=== PATIENT | female | born 1945 | race Caucasian/White ===

== ENCOUNTER 2018-10-04 03:12 | Inpatient (IN) | payer MEDICARE | END 2018-10-22 16:58 | LOC: EDH 03:12 → 2AH 10-05 03:43 → 2CH 10-11 15:30 → 2DH 10-15 20:12 → EDHIP 05:15 | DX: I21.4 Non-ST elevation (NSTEMI) myocardial infarction (principal); J96.01 Acute respiratory failure with hypoxia; J18.9 Pneumonia, unspecified organism; I50.23 Acute on chronic systolic (congestive) heart failure; K66.1 Hemoperitoneum; J44.1 Chronic obstructive pulmonary disease with (acute) exacerbation; J44.0 Chronic obstructive pulmonary disease with (acute) lower respiratory infection; I13.0 Hypertensive heart and chronic kidney disease with heart failure and stage 1 through stage 4 chronic kidney disease, or unspecified chronic kidney disease; I48.91 Unspecified atrial fibrillation; I11.0 Hypertensive heart disease with heart failure ==

== ENCOUNTER 2019-09-21 18:03 | Inpatient (IN) | payer MEDICARE ==
[~2019-09-21] VITALS: Ht 162.6 cm; Wt 76.2 kg
[2019-09-21] MEDS ORDERED: ALBUTEROL INHALER 90MCG/INH IH ONE (18:16)
[2019-09-21] MEDS ORDERED: METHYLPREDNISOLONE SOD SUCC 125MG/2ML VIAL ONE (18:17)
[2019-09-21 18:40] LABS: BASOPHILS % (AUTO) 0.3 % (0.0-5.0); EOSINOPHILS % (AUTO) 0.2 % (0.0-8.0); HEMATOCRIT 41.8 % (36-48); LYMPHOCYTES % (AUTO) 17.2 % (21.0-51.0); MEAN CORPUSCULAR HEMOGLOBIN 28.3 pg (27.0-33.0); MEAN CORPUSCULAR HGB CONC 31.1 g/dL (32.0-36.0); MEAN CORPUSCULAR VOLUME 90.9 fL (79-99); MONOCYTES % (AUTO) 4.8 % (3.0-13.0); PLATELET COUNT (AUTO) 328 K/uL (130-400); RED CELL DISTRIBUTION WIDTH 15.2 % (11.0-15.5); WHITE BLOOD COUNT (AUTO) 16.3 K/uL (4.8-10.8)
[2019-09-21 18:55] LABS: CREATININE 0.9 mg/dL (0.5-1.5); POTASSIUM 4.5 mmol/L (3.5-5.1)
[2019-09-21 18:57] LABS: INR 0.97 (0.85-1.15); PARTIAL THROMBOPLASTIN TIME 23.3 SEC (26.3-35.5); PROTHROMBIN TIME 10.5 SEC (9.6-11.6)
[2019-09-21 19:01] LABS: ALBUMIN 3.9 g/dL (3.5-5.0); BILIRUBIN,TOTAL 1.4 mg/dL (0.2-1.0); MAGNESIUM 2.4 mg/dL (1.80-2.40); TOTAL PROTEIN, SERUM 8.4 g/dL (6.0-8.3)
[2019-09-21 19:09] LABS: ABG HCO3 24.8 mmol/L (21.0-28.0); ABG OXYGEN SATURATION 99.8 % (95.0-99.0); ABG PCO2 50 mmHg (32-45)
[2019-09-21 19:17] LABS: B-TYPE NATRIURETIC PEPTIDE 861 pg/mL (0-100)
[2019-09-21] MEDS ORDERED: DILTIAZEM HCL 5 MG/ML 10 ML VIAL IV ONE (19:51)
[2019-09-21] MEDS ORDERED: LEVOFLOXACIN 500 MG/D5W 100 ML 100 ML ONE (19:55)
[2019-09-21] MEDS ORDERED: VANCOMYCIN 1GM+NS 250ML 250 ML IV ONE (19:55)
[2019-09-21] MEDS ORDERED: HYDROCODONE/ACETAMINOPHEN 5/325 MG TAB ONE (20:09)
[2019-09-21] MEDS ORDERED: AZITHROMYCIN 500MG+NS 250ML 250 ML IV ONE (20:36)
[2019-09-21] MEDS ORDERED: FUROSEMIDE 10 MG/ML 4ML VIAL ONE (20:36)
[2019-09-21] MEDS ORDERED: DILTIAZEM HCL 125 MG/25 ML VIAL IV ONE (20:37)
[2019-09-21] MEDS ORDERED: SODIUM CHLORIDE 0.9% 100 ML IV ONE (20:37)
[2019-09-21] MEDS ORDERED: CEFTRIAXONE SODIUM 1 GM ONE (20:37)
[2019-09-21] MEDS ORDERED: DILTIAZEM 125MG+100 ML NS 125 ML IV SCH (21:15)
[2019-09-21 23:22] VITALS: BP 123/92
[2019-09-22 00:50] LABS: TROPONIN I 0.04 ng/mL (0.00-0.06)
[2019-09-22] MEDS: HYDROCODONE/ACETAMINOPHEN 10/325 MG TAB PO PRN ×4 (04:47→23:37)
[2019-09-22 06:24] VITALS: BP 128/68
[2019-09-22 06:25] LABS: HEMATOCRIT 39.3 % (36-48); MEAN CORPUSCULAR HEMOGLOBIN 28.9 pg (27.0-33.0); MEAN CORPUSCULAR HGB CONC 31.8 g/dL (32.0-36.0); RED BLOOD CELL COUNT(AUTO) 4.32 MIL/uL (4.00-5.50); RED CELL DISTRIBUTION WIDTH 15.1 % (11.0-15.5); WHITE BLOOD COUNT (AUTO) 8.7 K/uL (4.8-10.8)
[2019-09-22 06:46] LABS: ALBUMIN 3.5 g/dL (3.5-5.0); BILIRUBIN,TOTAL 0.8 mg/dL (0.2-1.0); CREATININE 0.8 mg/dL (0.5-1.5); POTASSIUM 3.9 mmol/L (3.5-5.1); TOTAL PROTEIN, SERUM 7.6 g/dL (6.0-8.3)
[2019-09-22 06:53] LABS: TROPONIN I 0.07 ng/mL (0.00-0.06)
[2019-09-22] MEDS: INSULIN R PO SS1 SQ SCH ×4 (07:10→21:00)
[2019-09-22] MEDS ORDERED: DILTIAZEM HCL 120 MG CAP.SR.24H PO SCH (09:00)
[2019-09-22] MEDS: ENOXAPARIN SODIUM 100 MG/1 ML SQ SCH ×3 (09:05→20:13)
[2019-09-22 09:11] VITALS: BP 156/92
[2019-09-22] MEDS: FUROSEMIDE 10 MG/ML 2ML VIAL IVP SCH ×2 (11:51→23:36)
[2019-09-22 12:36] LABS: TROPONIN I 0.06 ng/mL (0.00-0.06)
[2019-09-22 12:49] VITALS: BP 136/72
--- NOTE | 2019-09-22 15:51 | NUR ---
ATTEMPTED IA - NO ANSWER AT PT AND SPOUE PHONE NUMBER. WILL FOLLOW UP PT IS COVID UNIT, NEED TO DO INTERVIEW VIA PHONE. Addendum: 09/22/19 at 1553 by SHON FISHER RN CM Amended: Links added.
--- NOTE | 2019-09-22 15:58 | NUR ---
CHART REVIEWED, ACF UPLOADED
[2019-09-22 16:21] VITALS: BP 151/69
[2019-09-22 19:00] VITALS: BP 140/73
[2019-09-22] MEDS: CEFTRIAXONE SODIUM 1 GM IVP SCH (20:11)
[2019-09-22] MEDS: AZITHROMYCIN 500MG+NS 250ML 250 ML IV SCH (20:11)
[2019-09-22] MEDS ORDERED: METOPROLOL TARTRATE 50 MG TAB PO SCH (21:00)
[2019-09-22 23:00] VITALS: BP 133/73
[2019-09-23 03:00] VITALS: BP 127/84
[2019-09-23 04:48] LABS: BASOPHILS % (AUTO) 0.1 % (0.0-5.0); HEMATOCRIT 36.6 % (36-48); LYMPHOCYTES % (AUTO) 11.4 % (21.0-51.0); MEAN CORPUSCULAR HEMOGLOBIN 28.6 pg (27.0-33.0); MEAN CORPUSCULAR HGB CONC 31.7 g/dL (32.0-36.0); MEAN CORPUSCULAR VOLUME 90.1 fL (79-99); MONOCYTES % (AUTO) 5.7 % (3.0-13.0); NEUTROPHILS % (AUTO) 82.4 % (40.0-77.0); PLATELET COUNT (AUTO) 286 K/uL (130-400); RED BLOOD CELL COUNT(AUTO) 4.06 MIL/uL (4.00-5.50); RED CELL DISTRIBUTION WIDTH 15.2 % (11.0-15.5); WHITE BLOOD COUNT (AUTO) 14.4 K/uL (4.8-10.8)
[2019-09-23 05:19] LABS: CREATININE 0.8 mg/dL (0.5-1.5); POTASSIUM 3.5 mmol/L (3.5-5.1)
[2019-09-23] MEDS: HYDROCODONE/ACETAMINOPHEN 10/325 MG TAB PO PRN ×4 (05:51→22:07)
[2019-09-23] MEDS: INSULIN R PO SS1 SQ SCH ×4 (07:30→21:00)
[2019-09-23] MEDS: METOPROLOL SUCCINATE 50 MG TAB.SR.24H PO SCH (08:24)
[2019-09-23] MEDS: FUROSEMIDE 10 MG/ML 2ML VIAL IVP SCH ×2 (08:24→16:39)
[2019-09-23] MEDS: APIXABAN 5 MG TABLET PO SCH ×2 (08:25→21:59)
[2019-09-23 08:49] VITALS: BP 151/83
[2019-09-23 12:00] VITALS: BP 147/79
--- NOTE | 2019-09-23 15:18 | NUR ---
INITIAL SPOKE TO PATIENT VIA ROOM PHONE. LIVES W SPOUSE, SCOOTER AT [facility]- NO OTHER FAMILY IN [facility], BUT NEIGHBORS AND GFRIENDS AT [place] FOR SUPPORT; USES A CAN AND WALKER, BENCH IN SHOWER, 3 STEP UP TO HOUSE. NO PROVIDER SERVICES; HAD BAD FALL IN MAY AND WAS SENT TO [facility] "FOR MONTHS AND MONTHS" WILLING TO GO TO REHAB IF NEEDED. ON HIGH FLOW O2 AT THIS TIME, VERY WEAK, CM TO FOLLOW Addendum: 09/23/19 at 1521 by SHON FISHER RN CM Amended: Links added.
[2019-09-23 17:05] VITALS: BP 150/81
[2019-09-23 19:00] VITALS: BP 142/66
[2019-09-23] MEDS: AZITHROMYCIN 500MG+NS 250ML 250 ML IV SCH (20:00)
--- NOTE | 2019-09-23 20:10 | NUR ---
In to give meds, Eliquis and [place] given. Patient complains of pain to IV site, IV removed. Patient requesting to rest before new IV attempted.
[2019-09-23] MEDS: CEFTRIAXONE SODIUM 1 GM IVP SCH (21:00)
[2019-09-23] MEDS: LOSARTAN 50 MG TABLET PO SCH (22:00)
[2019-09-24] VITALS (7 sets, daily range): BP systolic 111–158; BP diastolic 61–89
[2019-09-24] MEDS: HYDROCODONE/ACETAMINOPHEN 10/325 MG TAB PO PRN ×5 (00:11→20:15)
[2019-09-24] MEDS: INSULIN R PO SS1 SQ SCH ×3 (05:39→20:16)
[2019-09-24] MEDS: FUROSEMIDE 10 MG/ML 2ML VIAL IVP SCH ×2 (08:25→20:15)
[2019-09-24] MEDS: APIXABAN 5 MG TABLET PO SCH ×2 (08:25→20:15)
[2019-09-24] MEDS: METOPROLOL SUCCINATE 50 MG TAB.SR.24H PO SCH (08:25)
[2019-09-24] MEDS: LOSARTAN 50 MG TABLET PO SCH (20:15)
[2019-09-24] MEDS: CEFTRIAXONE SODIUM 1 GM IVP SCH (20:15)
[2019-09-24] MEDS: AZITHROMYCIN 500MG+NS 250ML 250 ML IV SCH (20:15)
[2019-09-25] MEDS: HYDROCODONE/ACETAMINOPHEN 10/325 MG TAB PO PRN ×4 (00:03→23:51)
[2019-09-25 03:30] VITALS: BP 138/73
[2019-09-25] MEDS: INSULIN R PO SS1 SQ SCH ×4 (06:46→20:05)
[2019-09-25] MEDS: FUROSEMIDE 10 MG/ML 2ML VIAL IVP SCH (07:43)
[2019-09-25] MEDS: METOPROLOL SUCCINATE 50 MG TAB.SR.24H PO SCH (07:45)
[2019-09-25] MEDS: APIXABAN 5 MG TABLET PO SCH ×2 (07:46→20:47)
[2019-09-25 08:20] VITALS: BP 154/65
[2019-09-25 11:30] VITALS: BP 126/73
[2019-09-25 15:30] VITALS: BP 143/77
--- NOTE | 2019-09-25 18:20 | NUR ---
PATIENT TRANSFERRED FROM 202 TO 405 RECEIVED REPORT AND PATIENT BROUGHT BY WHEELCHAIR FROM ROOM 202 TO ROOM 405. ALERT AND ORIENTATED TIMES 3 , O2 AT @ 2 LITERS NC DENIES SOB, STATES PAIN SCORE 4 OUT OF 10. EDEMA +1 IN LOWER EXTREMITIES AND STATES LAST BM 09/24/19. HX OF SMOKING, COPD, HTN, DM, AFIB , BACK PAIN, AND HAD ECHO 05/2019 WITH AN EF OF 40%. LAST K+ 3.5 09/22 AND PATIENT WAS COVERED BUT NO LABS ORDERED TODAY. PATIENT TRANSFERRED TO BED . PATIENT HAS 22 G SL IN RIGHT FOREARM. SIDE RAILS UP X 2 AND CALL LIGHT AT BEDSIDE. WILL CONTINUR TO MONITOR
[2019-09-25 18:43] VITALS: BP 123/71
[2019-09-25] MEDS: AZITHROMYCIN 500MG+NS 250ML 250 ML IV SCH (20:46)
[2019-09-25] MEDS: CEFTRIAXONE SODIUM 1 GM IVP SCH (20:46)
[2019-09-25] MEDS: LOSARTAN 50 MG TABLET PO SCH (22:43)
[2019-09-25 23:00] VITALS: BP 132/71
[2019-09-26 03:25] VITALS: BP 140/75
[2019-09-26 03:52] LABS: BASOPHILS % (AUTO) 0.2 % (0.0-5.0); EOSINOPHILS % (AUTO) 1.4 % (0.0-8.0); HEMATOCRIT 39.3 % (36-48); LYMPHOCYTES % (AUTO) 31.5 % (21.0-51.0); MEAN CORPUSCULAR HEMOGLOBIN 28.2 pg (27.0-33.0); MONOCYTES % (AUTO) 7.7 % (3.0-13.0); NEUTROPHILS % (AUTO) 58.9 % (40.0-77.0); PLATELET COUNT (AUTO) 298 K/uL (130-400); RED BLOOD CELL COUNT(AUTO) 4.32 MIL/uL (4.00-5.50); RED CELL DISTRIBUTION WIDTH 14.6 % (11.0-15.5); WHITE BLOOD COUNT (AUTO) 9.2 K/uL (4.8-10.8)
[2019-09-26 04:04] LABS: CREATININE 0.8 mg/dL (0.5-1.5); POTASSIUM 3.8 mmol/L (3.5-5.1)
[2019-09-26] MEDS: INSULIN R PO SS1 SQ SCH ×4 (05:52→21:00)
[2019-09-26 08:03] VITALS: BP 130/46
[2019-09-26] MEDS: FUROSEMIDE 40 MG TABLET PO SCH (08:17)
[2019-09-26] MEDS: METOPROLOL SUCCINATE 50 MG TAB.SR.24H PO SCH (08:17)
[2019-09-26] MEDS: APIXABAN 5 MG TABLET PO SCH ×2 (08:18→20:04)
[2019-09-26] MEDS: HYDROCODONE/ACETAMINOPHEN 10/325 MG TAB PO PRN ×3 (09:52→23:04)
[2019-09-26 10:44] VITALS: BP 135/76
[2019-09-26] MEDS ORDERED: ALBUTEROL INHALER 90MCG/INH IH PRN (11:45)
[2019-09-26] MEDS: ALBUTEROL SULFATE 0.083% 2.5 MG/3 ML INH IH PRN ×2 (11:52→18:33)
[2019-09-26] MEDS: METHYLPREDNISOLONE SOD SUCC 40MG/ML 1ML IVP SCH ×2 (13:43→20:04)
[2019-09-26 15:15] VITALS: BP 116/71
[2019-09-26 19:00] VITALS: BP 150/65
[2019-09-26] MEDS: AZITHROMYCIN 500MG+NS 250ML 250 ML IV SCH (20:03)
[2019-09-26] MEDS: CEFTRIAXONE SODIUM 1 GM IVP SCH (20:04)
[2019-09-26] MEDS: LOSARTAN 50 MG TABLET PO SCH (20:04)
[2019-09-27] VITALS: BP 138/77
[2019-09-27] MEDS: HYDROCODONE/ACETAMINOPHEN 10/325 MG TAB PO PRN ×3 (03:23→14:56)
[2019-09-27 04:00] VITALS: BP 152/77
[2019-09-27] MEDS: ALBUTEROL SULFATE 0.083% 2.5 MG/3 ML INH IH PRN ×2 (06:16→19:01)
[2019-09-27] MEDS: INSULIN R PO SS1 SQ SCH ×4 (06:46→21:00)
--- NOTE | 2019-09-27 07:24 | NUR ---
WANDA MUÑOZ; HAVE PATIENT WORK WITH PT 09/27/19. DCP FOR TOMORROW 09/28/19
[2019-09-27 07:51] VITALS: BP 131/62
[2019-09-27] MEDS: METOPROLOL SUCCINATE 50 MG TAB.SR.24H PO SCH (08:07)
[2019-09-27] MEDS: FUROSEMIDE 40 MG TABLET PO SCH (08:07)
[2019-09-27] MEDS: APIXABAN 5 MG TABLET PO SCH ×2 (08:08→21:15)
[2019-09-27] MEDS: METHYLPREDNISOLONE SOD SUCC 40MG/ML 1ML IVP SCH ×2 (08:08→21:15)
[2019-09-27 10:55] VITALS: BP 134/51
[2019-09-27 16:24] VITALS: BP 135/65
[2019-09-27 19:00] VITALS: BP 131/72
[2019-09-27] MEDS: LOSARTAN 50 MG TABLET PO SCH (21:15)
[2019-09-27] MEDS: AZITHROMYCIN 500MG+NS 250ML 250 ML IV SCH (21:15)
[2019-09-27] MEDS: CEFTRIAXONE SODIUM 1 GM IVP SCH (21:15)
[2019-09-28] VITALS (7 sets, daily range): BP systolic 134–158; BP diastolic 61–82
[2019-09-28] MEDS: HYDROCODONE/ACETAMINOPHEN 10/325 MG TAB PO PRN ×4 (00:11→21:01)
[2019-09-28] MEDS: INSULIN R PO SS1 SQ SCH ×4 (06:30→21:00)
[2019-09-28] MEDS: ALBUTEROL SULFATE 0.083% 2.5 MG/3 ML INH IH PRN ×2 (06:41→19:05)
[2019-09-28] MEDS: APIXABAN 5 MG TABLET PO SCH ×2 (08:26→21:01)
[2019-09-28] MEDS: FUROSEMIDE 40 MG TABLET PO SCH (08:26)
[2019-09-28] MEDS: METOPROLOL SUCCINATE 50 MG TAB.SR.24H PO SCH (08:26)
[2019-09-28] MEDS: METHYLPREDNISOLONE SOD SUCC 40MG/ML 1ML IVP SCH ×2 (08:27→21:00)
--- NOTE | 2019-09-28 14:10 | NUR ---
NUTRITION EDUCATION DARRYL provided Heart Failure Nutrition Education. DARRYL provided reference materials and handouts. Pt engaged and receptive to education. Pt verbalized understanding. DARRYL encouraged Pt to notify as questions or concerns arise. Addendum: 09/28/19 at [address] Amended: Links added.
--- NOTE | 2019-09-28 14:16 | NUR ---
RD SCREEN - LOS X 7 Pt tolerating current diet order with good PO intake and no report of GI distress. Pt LBM 09/27/19. Pt BMI 28.4. DARRYL provided Heart Failure Nutrition Education. RD to continue to monitor. Please notify as nutrition concerns arise. Thank you. Addendum: 09/28/19 at [address] RD Amended: Links added.
[2019-09-28] MEDS: PREDNISONE 20 MG TABLET PO SCH (21:01)
[2019-09-28] MEDS: AZITHROMYCIN 500MG+NS 250ML 250 ML IV SCH (21:01)
[2019-09-28] MEDS: CEFTRIAXONE SODIUM 1 GM IVP SCH (21:01)
[2019-09-28] MEDS: LOSARTAN 50 MG TABLET PO SCH (21:01)
[2019-09-29] MEDS ORDERED: HYDROCODONE/ACETAMINOPHEN 10/325 MG TAB ONE (01:14)
[2019-09-29 04:00] VITALS: BP 134/81
[2019-09-29 04:22] LABS: CREATININE 0.7 mg/dL (0.5-1.5)
[2019-09-29] MEDS: INSULIN R PO SS1 SQ SCH ×3 (06:09→15:53)
[2019-09-29] MEDS: HYDROCODONE/ACETAMINOPHEN 10/325 MG TAB PO PRN ×2 (06:35→15:55)
[2019-09-29] MEDS: ALBUTEROL SULFATE 0.083% 2.5 MG/3 ML INH IH PRN (06:44)
[2019-09-29 07:40] VITALS: BP 135/61
[2019-09-29] MEDS: FUROSEMIDE 40 MG TABLET PO SCH (07:58)
[2019-09-29] MEDS: METOPROLOL SUCCINATE 50 MG TAB.SR.24H PO SCH (07:58)
[2019-09-29] MEDS: PREDNISONE 20 MG TABLET PO SCH (07:59)
[2019-09-29] MEDS: APIXABAN 5 MG TABLET PO SCH (07:59)
[2019-09-29] MEDS: METHYLPREDNISOLONE SOD SUCC 40MG/ML 1ML IVP SCH (07:59)
[2019-09-29 11:42] VITALS: BP 113/67
[2019-09-29 15:55] VITALS: BP 135/57
--- NOTE | 2019-09-29 17:00 | NUR ---
PATIENT BEING DISCHARGED HOME AT THIS TIME; PIV AND TELEPACK REMOVED; NEW PRESCRIPTIONS GIVEN AND COPIES PLACED IN CHART; ALL DC INSTRUCTIONS GIVEN; PATIENT STATES SHE FULLY UNDERSTANDS AND HAS NO FURTHER QUESTIONS AT THIS TIME.
== END 2019-09-29 16:59 | disposition home or self-care (01) | DRG 308 ==
LOC: EDH 18:03 → EDHIP 20:15 → 2AH 23:27 → 4BH 09-25 18:10
PROVIDERS: ADMIT Internal Medicine; ATTEND Internal Medicine
DX: I48.91 Unspecified atrial fibrillation (principal); I50.43 Acute on chronic combined systolic (congestive) and diastolic (congestive) heart failure; I11.0 Hypertensive heart disease with heart failure; E11.9 Type 2 diabetes mellitus without complications; Z88.0 Allergy status to penicillin; Z91.010 Allergy to peanuts; Z20.828 Contact with and (suspected) exposure to other viral communicable diseases; E78.5 Hyperlipidemia, unspecified; Z79.899 Other long term (current) drug therapy; I25.10 Atherosclerotic heart disease of native coronary artery without angina pectoris; G89.29 Other chronic pain; M15.9 Polyosteoarthritis, unspecified; Z85.3 Personal history of malignant neoplasm of breast; Z91.14 Patient's other noncompliance with medication regimen; Z91.81 History of falling; J44.9 Chronic obstructive pulmonary disease, unspecified; R59.0 Localized enlarged lymph nodes
CPT/HCPCS: 36415; 36600; 71045; 71250; 80048; 80053; 82550; 82728; 82803; 82948; 83605; 83615; 83735; 83874; 83880; 84145; 84484; 85025; 85027; 85610; 85730; 87040; 87077; 87186; 87635; 87804; 93005; 94640; 94664; 94760; 97039; G0378; J0456; J0696; J1650; J1940; J1956; J2920; J2930; J3370; J3490

== ENCOUNTER 2019-11-27 06:27 | Emergency (ER) | payer MEDICARE ==
[2019-11-27] MEDS ORDERED: FAMOTIDINE 20MG TAB 20 MG TAB ONE (06:58)
[2019-11-27] MEDS ORDERED: DIPHENHYDRAMINE HCL 25 MG CAPSULE ONE (06:59)
== END 2019-11-27 07:34 | disposition home or self-care (01) ==
LOC: EDH 06:27
DX: S80.862A Insect bite (nonvenomous), left lower leg, initial encounter (principal); S80.861A Insect bite (nonvenomous), right lower leg, initial encounter; S30.861A Insect bite (nonvenomous) of abdominal wall, initial encounter; S30.860A Insect bite (nonvenomous) of lower back and pelvis, initial encounter; L29.9 Pruritus, unspecified; J44.9 Chronic obstructive pulmonary disease, unspecified; E11.9 Type 2 diabetes mellitus without complications; I10 Essential (primary) hypertension; Z87.891 Personal history of nicotine dependence; Z88.0 Allergy status to penicillin; Z88.5 Allergy status to narcotic agent; Z91.040 Latex allergy status; W57.XXXA Bitten or stung by nonvenomous insect and other nonvenomous arthropods, initial encounter; Y93.89 Activity, other specified; Y92.89 Other specified places as the place of occurrence of the external cause; Y99.8 Other external cause status
CPT/HCPCS: 99283; Q0163

== ENCOUNTER 2020-02-21 21:28 | Inpatient (IN) | payer MEDICARE ==
[~2020-02-21] VITALS: Ht 157.5 cm; Wt 70.4 kg
[2020-02-21 22:03] LABS: BASOPHILS % (AUTO) 0.6 % (0.0-5.0); EOSINOPHILS % (AUTO) 1.6 % (0.0-8.0); HEMATOCRIT 41.3 % (36-48); MEAN CORPUSCULAR HEMOGLOBIN 31.6 pg (27.0-33.0); MEAN CORPUSCULAR HGB CONC 32.7 g/dL (32.0-36.0); MEAN CORPUSCULAR VOLUME 96.7 fL (79-99); MONOCYTES % (AUTO) 8.5 % (3.0-13.0); PLATELET COUNT (AUTO) 324 K/uL (130-400); RED BLOOD CELL COUNT(AUTO) 4.27 MIL/uL (4.00-5.50); RED CELL DISTRIBUTION WIDTH 14.7 % (11.0-15.5); WHITE BLOOD COUNT (AUTO) 12.8 K/uL (4.8-10.8)
[2020-02-21 22:09] LABS: CREATININE 0.8 mg/dL (0.5-1.5); POTASSIUM 3.4 mmol/L (3.5-5.1)
[2020-02-21 22:10] LABS: INR 0.91 (0.85-1.15); PARTIAL THROMBOPLASTIN TIME 24.1 SEC (26.3-35.5); PROTHROMBIN TIME 9.9 SEC (9.6-11.6)
[2020-02-21 22:14] LABS: ALBUMIN 3.8 g/dL (3.5-5.0); BILIRUBIN,TOTAL 0.4 mg/dL (0.2-1.0); TOTAL PROTEIN, SERUM 7.6 g/dL (6.0-8.3)
[2020-02-21] MEDS ORDERED: ASPIRIN 325 MG TABLET ONE (22:24)
[2020-02-21] MEDS ORDERED: NITROGLYCERIN 1GM/1 INCH PACKET TD ONE (22:26)
[2020-02-21 22:33] LABS: B-TYPE NATRIURETIC PEPTIDE 365 pg/mL (0-100)
[2020-02-21] MEDS ORDERED: FUROSEMIDE 10 MG/ML 2ML VIAL ONE (22:37)
[2020-02-21 23:25] LABS: APPEARANCE,URINE Clear (CLEAR); BILIRUBIN,URINE Negative (NEGATIVE); COLOR,URINE Yellow (YELLOW); GLUCOSE, URINE (UA) Negative (NEGATIVE); KETONES,URINE Negative (NEGATIVE); LEUKOCYTE ESTERASE ,URINE Trace (NEGATIVE); NITRATE,URINE Negative (NEGATIVE); OCCULT BLOOD,URINE Small (NEGATIVE); PROTEIN,URINE Negative (NEGATIVE); UROBILINOGEN,URINE 0.2 mg/dL (0.2-1.0)
[2020-02-21 23:31] LABS: BACTERIA,URINE Few /HPF (None Seen); MUCUS,URINE Moderate LPF (None Seen); SQUAMOUS EPITHELIAL CELL,UR Moderate /HPF (0-2)
[2020-02-22] MEDS ORDERED: POTASSIUM CHLORIDE 20MEQ/100ML 100 ML IV PRN (00:30)
[2020-02-22] MEDS ORDERED: POTASSIUM CHLORIDE 10% ELIXIR 20 MEQ/15 ML UDCUP PO PRN (00:30)
[2020-02-22] MEDS ORDERED: LIDOCAINE HCL-MPF 1% 2ML VIAL IJ PRN (00:30)
[2020-02-22] MEDS ORDERED: POTASSIUM CHLORIDE 20 MEQ ERTAB PO ONE ×2 (00:44→05:16)
[2020-02-22 05:07] LABS: BASOPHILS % (AUTO) 0.7 % (0.0-5.0); EOSINOPHILS % (AUTO) 1.9 % (0.0-8.0); HEMATOCRIT 38.2 % (36-48); LYMPHOCYTES % (AUTO) 34.9 % (21.0-51.0); MEAN CORPUSCULAR HEMOGLOBIN 31.4 pg (27.0-33.0); MEAN CORPUSCULAR HGB CONC 33.2 g/dL (32.0-36.0); MEAN CORPUSCULAR VOLUME 94.6 fL (79-99); MONOCYTES % (AUTO) 7.7 % (3.0-13.0); NEUTROPHILS % (AUTO) 54.5 % (40.0-77.0); PLATELET COUNT (AUTO) 249 K/uL (130-400); RED BLOOD CELL COUNT(AUTO) 4.04 MIL/uL (4.00-5.50); RED CELL DISTRIBUTION WIDTH 14.3 % (11.0-15.5); WHITE BLOOD COUNT (AUTO) 10.4 K/uL (4.8-10.8)
[2020-02-22 05:14] LABS: CREATININE 0.7 mg/dL (0.5-1.5); POTASSIUM 3.3 mmol/L (3.5-5.1)
[2020-02-22 05:16] LABS: ALBUMIN 3.3 g/dL (3.5-5.0); BILIRUBIN,TOTAL 0.6 mg/dL (0.2-1.0); TOTAL PROTEIN, SERUM 6.8 g/dL (6.0-8.3)
[2020-02-22] MEDS ORDERED: ONDANSETRON HCL 4 MG/2 ML VIAL ONE (07:58)
[2020-02-22] MEDS ORDERED: DILTIAZEM HCL 180 MG CAP.SR.24H PO SCH (09:00)
[2020-02-22] MEDS ORDERED: ENOXAPARIN SODIUM 100 MG/1 ML SQ SCH (09:00)
[2020-02-22] MEDS ORDERED: HYDROCODONE/ACETAMINOPHEN 5/325 MG TAB ONE (09:38)
[2020-02-22] MEDS ORDERED: FUROSEMIDE 10 MG/ML 4ML VIAL ONE (10:54)
[2020-02-22] MEDS ORDERED: ENOXAPARIN SODIUM 100 MG/1 ML SQ ONE (10:54)
[2020-02-22] MEDS ORDERED: HYDROCODONE/ACETAMINOPHEN 5/325 MG TAB PO SCH (11:00)
[2020-02-22] MEDS ORDERED: ONDANSETRON HCL 4 MG/2 ML VIAL IVP PRN (11:00)
[2020-02-22 19:50] VITALS: BP 115/74
--- NOTE | 2020-02-22 20:00 | NUR ---
admission note admit to room 321 via stretcher from er. patient awake, alert, ox3,no sob, no c/o pain at this time, teach patient plan of care and expected outcome, patient verbalizes understanding via teach back
[2020-02-22] MEDS ORDERED: TRIA1TAB3 PO (21:36)
[2020-02-22] MEDS ORDERED: DONE5TAB33 PO (21:36)
[2020-02-22] MEDS: FUROSEMIDE 10 MG/ML 4ML VIAL IVP SCH (21:49)
[2020-02-23] VITALS (7 sets, daily range): BP systolic 113–148; BP diastolic 58–70
[2020-02-23 06:04] LABS: CREATININE 0.7 mg/dL (0.5-1.5); POTASSIUM 3.6 mmol/L (3.5-5.1)
[2020-02-23] MEDS ORDERED: TRIAMTEREN/HCTZ 37.5/25 MG 1 TAB TAB PO SCH (09:00)
[2020-02-23] MEDS: DONEPEZIL HCL 5 MG TAB PO SCH (10:48)
[2020-02-23] MEDS: APIXABAN 5 MG TABLET PO SCH ×2 (10:49→19:36)
[2020-02-23] MEDS: METOPROLOL SUCCINATE 50 MG TAB.SR.24H PO SCH (10:49)
[2020-02-23] MEDS: FUROSEMIDE 10 MG/ML 4ML VIAL IVP SCH ×2 (10:49→19:36)
[2020-02-23] MEDS: HYDROCODONE/ACETAMINOPHEN 5/325 MG TAB PO PRN ×3 (10:50→23:41)
--- NOTE | 2020-02-23 11:00 | NUR ---
SPOKE TO PATIENT AT BEDSIDE STATES LIVES WITH SPOUSE SCOOTER, WHO PROVIDES TRANSPORT, STATES 3 STEPS UP TO HOME, BENCH IN SHOWER, NO DME- STATES HD A WALKER A WHILE AGO AND GAVE IT BACK TO DR. MUÑOZ'S OFFICE BECAUSE SHE DID NOT FEEL SHE NEEDED IT. STATES FORGETFUL. NO PROVIDER OR HOME HEALTH SERVICES STATES FORGETS TO TAKE MEDS. CALL TO SPOUSE RE LAURA PENDING Addendum: 02/23/20 at 1215 by SHON FISHER RN CM Amended: Links added.
--- NOTE | 2020-02-23 11:30 | NUR ---
DARRYL TEACHING PT WAS SEEN 02/23/20 FOR A CHF DIET EDUCATION. PT HAS TROUBLE HEARING AND REMEMBERING. PT STATED NOT TAKING ANY DM MEDICATION AND FELT SHE DIDN'T NEED TO TAKE LASIX MEDICATION AT HOME. PT STATED NOT COOKING AT HOME AND HER BUYS FAST FOOD SUCH HAMBURGERS AND HOTDOGS. PT WAS ADVISED TO AIM FOR LOW SODIUM OPTIONS WHEN EATING FAST FOOD. PT UNABLE TO UNDERSTAND. PT STATED NOT HAVING CENTRAL AIR AT HOME WHICH IS WHY PT PREFERS MICROWAVABLE FOOD OR EATING OUT TO AVOID THE HOUSE GETTING TOO HOT. PT WAS GIVEN HANDOUTS FOR LOW SODIUM OPTIONS. Addendum: 02/23/20 at [address] Amended: Links added.
--- NOTE | 2020-02-23 12:01 | NUR ---
RD NOTIFICATION PT ASSESSED ON 02/23/20. PT WAS ADMITTED TO HOSPITAL DUE TO UNCONTROLLED CHF. PT WAS UNCOMPLYING WITH LASIX MEDICATION. PT IS CURRENTLY ON A 75 GM CC DIET AND CONSUMING ADEQUATELY. LAST RECORDED BOWEL MOVEMENT WAS 02/21/20. PT WAS SITTING IN CHAIR AT TIME OF ASSESSMENT. PT DENIES SIGNIFICANT UNINTENTIONAL WT LOSS. PT'S RECENT LAB VALUES: BG 116, K 3.6, ALB 3.3. PT IS WELL NOURISHED. RD RECOMMENDATION: CHANGE DIET TO HEART HEALTHY WITH [address] WILL CONTINUE TO MONITOR PO INTAKE AND LAB VALUES. THANK YOU Addendum: 02/23/20 at [address] Amended: Links added.
--- NOTE | 2020-02-23 12:18 | NUR ---
SPOKE TO SPOUSE SCOOTER- ALSO SOUNDS CONFUSED STATES CANT REMEMBER IF PATIENT HAS A WALKER OR NOT. STATES NO AC, BUT THEY DO HAVE [facility]. [facility] HAS NOT HAD HOME HEALTH NURSES COME IN THE PAST, BUT DR. MUÑOZ IS ALKING ABOUT SENDING SOME NURSES. [facility]- [facility]; TEXT TO MD FOR HH ORDERS AWAITING RESPONSE Addendum: 02/23/20 at 1223 by SHON FISHER RN CM Amended: Links added.
--- NOTE | 2020-02-23 15:23 | NUR ---
SPOKE [phone] TO DTR ONELIA UPDATED ON PLAN [facility]WARD TO [facility] FROM DTR ONELIA, SPOUSE AND PATIENT REFERRAL SENT
--- NOTE | 2020-02-23 16:48 | NUR ---
ACCEPTED AT [facility]- [facility], WILL MAKE THIERRY AWARE Addendum: 02/23/20 at 1651 by SHON FISHER RN CM Amended: Links added.
[2020-02-23] MEDS: POTASSIUM CHLORIDE 20 MEQ ERTAB PO PRN ×2 (19:37→22:50)
[2020-02-23] MEDS ORDERED: LISINOPRIL 2.5 MG TABLET PO SCH (20:00)
--- NOTE | 2020-02-23 20:00 | NUR ---
assessment and teaching patient awake, alert, ox3, no sob, no c/o pain at this time, teach patient plan of care and expected outcome,reinforce to call nurse when urge to void to avoid falls and injury patient verbalizes understanding via teach back
[2020-02-24 03:45] VITALS: BP 112/72
[2020-02-24] MEDS: HYDROCODONE/ACETAMINOPHEN 5/325 MG TAB PO PRN ×2 (05:01→09:30)
[2020-02-24 05:27] LABS: CREATININE 0.9 mg/dL (0.5-1.5); POTASSIUM 4.9 mmol/L (3.5-5.1)
--- NOTE | 2020-02-24 06:40 | NUR ---
ROUNDS DR. MUÑOZ HERE TO SEE PATIENT WITH ORDERS, DISCHARGE PLAN FOR NOON TODAY, NO ELIQUIS TO BE TAKEN AT HOME, FOLLOW UP ONE WEEK OFFICE
[2020-02-24 08:00] VITALS: BP 135/68
[2020-02-24] MEDS: APIXABAN 5 MG TABLET PO SCH (08:49)
[2020-02-24] MEDS: DONEPEZIL HCL 5 MG TAB PO SCH (09:20)
[2020-02-24] MEDS: METOPROLOL SUCCINATE 50 MG TAB.SR.24H PO SCH (09:20)
[2020-02-24] MEDS: FUROSEMIDE 10 MG/ML 4ML VIAL IVP SCH (09:20)
--- NOTE | 2020-02-24 11:42 | NUR ---
REPORT CALLED TO HOME HEALTH PER THEM WILL PICK SERVICES FOR HER TOMORROW
[2020-02-24 12:00] VITALS: BP 115/66
--- NOTE | 2020-02-24 12:40 | NUR ---
ADDENDUM. WHEN DISCUSSING PATIENT WITH HOME HEALTH YESTERDAY MICHELLE STATES THAT THEY KNOW THE FAMILY AND THAT THE LIVING CONDITIONS ARE NOT GOOD, THAT SHE BELIEVES THERE IS AN OPEN APS (WITH ELISABETH- WORKER?). STATES THE MD OFFICE HAS NOTICE PATIENT COMING TO APPOINTMENTS DRESSED INSUFICIENTLY WILL FOLLOW UP WITH JESUSITA.
--- NOTE | 2020-02-24 12:57 | NUR ---
DISCHARGE INSTRUCTIONS DISCHARGE INSTRUCTIONS GIVEN AND PATIENT VERBALIZED UNDERSTANDING, INSTRUCTED ON CONTINUE HOME MEDICATIONS AND FOLLOW-UP WITH DR MUÑOZ IN ONE WEEK PATIENT WILL CALL OFFICE FOR APPOINTMENT. CALLED FOR PATIENT REQUEST FOR RIDE HOME AT [phone] GOT VOICE MAIL LEFT MESSAGE AND CALL BACK NUMBER Addendum: 02/24/20 at 1302 by ISMA ELLIS RN RN DISCHARGE IV REMOVED WITH CATHETER INTACT AND SITE DRESSED, MONITOR UNIT NOTIFIED AND TELEMETRY UNIT REMOVED. WILL CONTINUE TO TRY TO REACH FOR RIDE HOME
--- NOTE | 2020-02-24 13:04 | NUR ---
DISCHARGE CONTACTED DAUGHTER-IN LAW , SHE WILL REACH OUT TO PATIENT AND CALL BACK WITH UPDATE
--- NOTE | 2020-02-24 13:50 | NUR ---
DISCHARGE FAMILY CALLED FROM ER HERE TO MAP DRAFTER PATIENT PATIENT TAKING BY WHEELCHAIR TO LOBBY TO MEET FAMILY AND GO HOME
== END 2020-02-24 13:55 | disposition home health service (06) | DRG 292 ==
LOC: EDH 21:28 → EDHIP 22:40 → OBSVTOIN 22:40 → 3DH 02-22 19:51
PROVIDERS: ADMIT Internal Medicine; ATTEND Internal Medicine
DX: I11.0 Hypertensive heart disease with heart failure (principal); I48.20 Chronic atrial fibrillation, unspecified; I50.43 Acute on chronic combined systolic (congestive) and diastolic (congestive) heart failure; E78.5 Hyperlipidemia, unspecified; R06.03 Acute respiratory distress; Z20.828 Contact with and (suspected) exposure to other viral communicable diseases; I25.10 Atherosclerotic heart disease of native coronary artery without angina pectoris; J44.9 Chronic obstructive pulmonary disease, unspecified; Z96.643 Presence of artificial hip joint, bilateral; M19.90 Unspecified osteoarthritis, unspecified site; E11.9 Type 2 diabetes mellitus without complications; G89.29 Other chronic pain; R35.0 Frequency of micturition; Z79.01 Long term (current) use of anticoagulants; Z85.3 Personal history of malignant neoplasm of breast; Z91.14 Patient's other noncompliance with medication regimen; Z90.13 Acquired absence of bilateral breasts and nipples; Z88.0 Allergy status to penicillin; Z91.010 Allergy to peanuts; Z84.89 Family history of other specified conditions; Z82.49 Family history of ischemic heart disease and other diseases of the circulatory system
CPT/HCPCS: 36415; 71046; 80048; 80053; 81001; 82948; 83880; 84484; 85025; 85378; 85610; 85730; 87426; 93005; 93306; 93356; 97039; G0378; J1650; J1940; J2405; U0003